=== PATIENT | male | born 1970 | race Caucasian/White ===

== ENCOUNTER 2017-11-25 07:22 | Observation (INO) | payer OTHER ==
[2017-11-25] VITALS (18 sets, daily range): BP systolic 94–116; BP diastolic 49–72
[~2017-11-25] VITALS: Ht 177.8 cm; Wt 108.0 kg
--- NOTE | ~2017-11-25 | H ---
[address] [address] HISTORY AND PHYSICAL Name: RIANNA GANN Room: [address] Oscar Hernandez#: [id number] Admission: 11/25/17 Attend Phys: Gaurav Pardo MD, Discharge: 11/26/17 Date of : 74 Report #: [id number] THIS REPORT FOR: //name// Please refer to the History and Physical performed in the physician's office. By: [id number] Records Staff JOE /ZAYNAB
[~2017-11-25 07:22] MED LIST: ASPIR 8181 MG PO; ATORVASTATIN CA40 MG PO; BRILINTA90 MG PO; CELEXA20 MG PO; EFFIENT10 MG; EFFIENT10 MG PO; IMDUR 30 MG TAB30 M1 PO; KLOR-CON M2020 MEQ PO; LASIX 20 MG TAB20 MG PO; LISINOPRIL10 MG PO; LOPRESSOR25 PO; NITRO-DUR1 EAC2 TRANSDERM; NITROGLYCERIN0.4 MG SUBLING; PLAVIX 75 MG TA75 M1 PO; RANEXA500 MG PO
[2017-11-25 08:03] LABS: HEMATOCRIT 42.1 % (42.0-52.0); HEMOGLOBIN 14.5 gm/dL (14.0-18.0); MCH 31.9 pg (26.0-34.0); MCHC 34.4 g/dL (28.0-37.0); MCV 92.5 fL (80.0-100.0); MPV 7.9 fl. (7.2-11.1); RBC 4.55 mil/uL (4.50-6.00); RDW-CV 14.1 % (10.5-14.5); WBC 7.5 thou/uL (4.0-11.0)
[2017-11-25 08:11] LABS: APTT 28.5 Seconds (25.0-31.3); INR 1.1; PROTIME 10.5 Seconds (9.20-11.50)
[2017-11-25 08:32] LABS: ANION GAP 8 mmol/L (7-16); BUN 16 mg/dL (7-18); CALCIUM 8.6 mg/dL (8.5-10.1); CHLORIDE 99 mmol/L (98-107); CO2 29 mmol/L (21-32); CREATININE 1.5 mg/dL (0.6-1.3); GLUCOSE 81 mg/dL (70-99); POTASSIUM 3.9 mmol/L (3.5-5.1); SODIUM 136 mmol/L (136-145)
[2017-11-25 08:35] LABS: ALBUMIN 4.2 g/dL (3.4-5.0); ALKALINE PHOSPHATASE 79 U/L (46-116); CHOLESTEROL 109 mg/dL (<200); HDL CHOLESTEROL 29 mg/dL (>40); LDL CHOLESTEROL 65 mg/dL (<100); SGOT 16 U/L (15-37); SGPT 18 U/L (30-65); TC:HDL 3.8 Ratio (Not establshd); TOTAL BILIRUBIN 0.7 mg/dL (<0.1-1.0); TOTAL PROTEIN 7.7 g/dL (6.4-8.2); TRIGLYCERIDE 75 mg/dL (<150); VLDL 15 mg/dL (<40)
[2017-11-25 08:36] LABS: SERUM ASSESSMENT Clear
[2017-11-26] VITALS: BP 117/58
[2017-11-26 04:00] VITALS: BP 123/55
[2017-11-26 05:27] LABS: HEMATOCRIT 37.5 % (42.0-52.0); HEMOGLOBIN 12.6 gm/dL (14.0-18.0); MCH 31.7 pg (26.0-34.0); MCHC 33.5 g/dL (28.0-37.0); MCV 94.7 fL (80.0-100.0); MPV 8.2 fl. (7.2-11.1); RBC 3.95 mil/uL (4.50-6.00); RDW-CV 14.6 % (10.5-14.5)
[2017-11-26 06:00] LABS: ANION GAP 7 mmol/L (7-16); BUN 13 mg/dL (7-18); CHLORIDE 107 mmol/L (98-107); CO2 25 mmol/L (21-32); CREATININE 1.2 mg/dL (0.6-1.3); GLUCOSE 80 mg/dL (70-99); SODIUM 139 mmol/L (136-145); TROPONIN-I LEVEL <0.06 ng/mL (<0.06)
[2017-11-26 09:30] VITALS: BP 122/64
[2017-11-26 09:45] VITALS: BP 122/64
[2017-11-26 11:19] VITALS: BP 122/64
[2017-11-26 12:40] VITALS: BP 122/64
--- NOTE | 2017-11-26 17:37 | EKG ---
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1970 Requested By: Gaurav Pardo Order Number: [id number] Marcus MD: Favian Jesus Measurements Intervals [place] Rate: 62 P: 69 CO: 156 QRS: 54 QRSD: 88 T: 41 QT: 413 QTc: 420 Interpretive Statements Sinus rhythm ST elevation suggests acute pericarditis Compared to ECG 10/18/2017 08:24:16 No significant changes Electronically Signed On 11-26-2017 17:37:16 CRM SPECIALIST by Favian Jesus [email or web address] <ELECTRONICALLY SIGNED> By: Favian Jesus MD, [facility] 11/26/17 1737 1 1 Favian Jesus MD, [facility] /EPI
--- NOTE | 2017-11-26 17:39 | EKG ---
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1970 Requested By: Gaurav Pardo Order Number: [id number] Reading MD: Favian Jesus Measurements Intervals [place] Rate: 62 P: 75 [place]: 172 QRS: 57 QRSD: 91 T: 37 QT: 432 QTc: 439 Interpretive Statements Sinus rhythm Abnormal R-wave progression, early transition ST elevation, consider ischemia versus pericarditis versus early repolarization Compared to ECG 10/18/2017 08:24:16 ST (T wave) deviation still present Electronically Signed On 11-26-2017 17:39:43 FIELD INTERVIEWER by Favian Jesus [email or web address] <ELECTRONICALLY SIGNED> By: Favian Jesus MD, FACC 11/26/17 1739 1235 1235 Favian Jesus MD, FAC /EPI
--- NOTE | 2017-11-26 17:43 | EKG ---
[place] [address] ELECTROCARDIOGRAM REPORT Name: RIANNA GANN Room: [address]#: [id number] Admission: 11/25/17 Attend Phys: Gaurav Pardo MD, Discharge: 11/26/17 Date of : 74 Report #: [id number] THIS REPORT FOR: //name// [facility] Test Date: 2017-11-26 Test Time: 03:13:05 Pat Name: RIANNA GANN Department: Room: [facility] Gender: M Clay Pigeon Setter: RSHEDBRANDEE : 1970 Requested By: Gaurav Pardo Order Number: [id number] Marcus MD: Favian Jesus Measurements Intervals [place] Rate: 69 P: 72 [place]: 148 QRS: 43 QRSD: 89 T: 29 QT: 410 QTc: 440 Interpretive Statements Sinus rhythm Low voltage, precordial leads Minimal ST elevation, inferior leads Baseline wander in lead(s) V6 Compared to ECG 10/18/2017 08:24:16 Low QRS voltage now present ST (T wave) deviation still present Electronically Signed On 11-26-2017 17:43:33 WATER SYSTEMS DESIGNER by Favian Jesus [email or web address] <ELECTRONICALLY SIGNED> By: Favian Jesus MD, FACC 11/26/17 1743 2 Favian Jesus MD, FAC /EPI
--- NOTE | 2017-11-27 16:31 | D ---
[facility] [address] [place] [address] DISCHARGE SUMMARY Name: RIANNA GANN Room: [address] Oscar Hernandez#: [id number] Admission: 11/25/17 Attend Phys: Gaurav Pardo MD, Discharge: 11/26/17 Date of : 74 Report #: [id number] THIS REPORT FOR: //name// CC: CHET Pardo DATE OF SERVICE: 11/26/2017 FINAL DISCHARGE DIAGNOSES: 1. Unstable angina. 2. Status post percutaneous coronary intervention with deployment of drug-eluting stents in the proximal left anterior descending and proximal first diagonal. 3. History of remote myocardial infarction. 4. Hypertension. 5. Hyperlipoproteinemia. PROCEDURES: 11/25/2017 - left heart catheterization, selective coronary arteriography, and percutaneous coronary intervention with deployment of drug-eluting stents at the site of ostial 80% LAD stenosis and ostial 75% first diagonal stenosis after fractional flow reserve was performed on the LAD. HOSPITAL COURSE: The patient is a very pleasant 47-year-old male with aggressive coronary artery disease status post remote myocardial infarction and multivessel stenting. He has underlying hypertension and hypercholesterolemia. Recently, he has noted an increase in frequency and severity of anginal episodes to the point where he is having daily and nightly episodes relieved by nitrates. Despite increasing his Ranexa to 1000 mg b.i.d. and using significant dose of transcutaneous nitrates, he still required frequent sublingual nitroglycerin tablets. In this context, I performed recatheterization on 11/26/2017 and that revealed significant coronary artery disease characterized by 80% ostial LAD narrowing and 75% ostial first diagonal stenosis. There was 30%-40% distal LAD narrowing. There was a widely patent proximal circumflex stent and widely patent distal right coronary artery stent with 30%-40% mid vessel narrowing. I performed FFR in the LAD with a minimum value 0.81. Noting the aforementioned data and the recent clinical instability, I elected to proceed with percutaneous coronary intervention, deploying 1 drug-eluting stent at the ostium of the first diagonal and 1 drug-eluting stent at the ostium of the LAD with a good angiographic result and 10% residual narrowing at both sites following stent deployment. The patient did well post-procedurally and there was good hemostasis at the left femoral site of catheterization. Laboratory on 11/26/2017 revealed a hemoglobin of 12.6, white blood cell count of 7000, platelets 155,000. Sodium 139, potassium 4.0, BUN 13, creatinine 1.2, LDL 65, total cholesterol 109, triglycerides 75 [place] [address] DISCHARGE SUMMARY Name: GANNRIANNA Room: [address] Oscar Hernandez#: [id number] Admission: 11/25/17 Attend Phys: Gaurav Pardo MD, Discharge: 11/26/17 Date of : 74 Report #: [id number] DISCHARGE MEDICATIONS: The patient was discharged to home on 11/26/2017 on the following medications: Aspirin 81 mg daily, atorvastatin 40 mg every other day, citalopram 20 mg daily, furosemide 20 mg every other day, lisinopril 20 mg b.i.d., metoprolol tartrate 50 mg b.i.d., potassium chloride 10 mEq daily, ticagrelor 90 mg b.i.d. Previously utilized transcutaneous nitrates and Ranexa have been discontinued. The patient is scheduled to return to see my nurse practitioner, Tasneem Ag on 12/17/2017 at 09:30 and myself on 01/07/2018 at 15:30. <ELECTRONICALLY SIGNED> By: Gaurav Pardo MD, FACC 11/27/17 1631 1052 1148Joguerita Pardo MD, FACC /nt
--- NOTE | 2017-11-29 11:34 | CARD ---
[address] [address] CARDIAC CATH REPORT Name: AZEEMRIANNA Mckinney Room: [address] Oscar Hernandez#: [id number] Admission: 11/25/17 Attend Phys: Gaurav Parod MD, Discharge: 11/26/17 Date of : 74 Report #: [id number] THIS REPORT FOR: //name// APPROVED REPORT Patient Details Patient Status: Out-Patient Room #: The patient is a 47 year-old male Event Personnel Gaurav Pardo Terminal Gauger Supervisor, Sonja Rodriguez Polytechnic Registrar, Penelope Jennings, Diaz Chase (R) Scrub Procedures Performed Art Access - L femoral artery* Left Heart Cath w/or w/o Coronaries [id number] [facility] [address] Place w/wo Plasty Addl BR DIAG [address] w/wo Plasty Single LAD [id number] Indication Unstable angina Risk Factors Family History, Hypercholesterolemia, Hypertension Previous Procedures/Diagnoses Previous PCI Admission/Lab Medications/Medications given during procedure Aspirin, Platelet Aff. Inhib., Angiomax bolus and infusion Procedure Narrative The patient was brought electively to the Cardiac Catheterization Laboratory and was prepped and draped in a sterile manner. The left femoral was infiltrated with 1% Lidocaine subcutaneous anesthesia. A Cypress 6 FR sheath was inserted into the LFA. Coronary angiography was performed using coronary diagnostic catheters. The right coronary system was accessed and visualized with a DIAG 6FR JR 4 catheter. The left coronary system was accessed and visualized with a DIAG 6FR JL 4 catheter. Left ventricular/Aortic Valve gradient assessed via catheter pullback. Pre-demployment femoral angiogram was performed . Closure device was deployed with a 6 Fr Angioseal STS 6Fr. The patient tolerated the procedure well and there were no complications associated with the procedure. There was no hematoma. Intraoperative [place] [address] CARDIAC CATH REPORT Name: RIANNA GANN Room: [address] Oscar M.Mindi#: [id number] Admission: 11/25/17 Attend Phys: Gaurav Pardo MD, Discharge: 11/26/17 Date of : 74 Report #: [id number] Sedation start time: 09:51 Case end Time: 11:31 Fentanyl 75 mcg Versed 3 mg Fluoro Time: 24.8 minutes Dose: DAP 224259 cGycm2 3475.31 mGy Contrast Type and Amount: Visipaque 775 ml Diagnostic Cath Left Main 0% narrowing LAD 80% focal ostial and 40% mid LAD stenosis; there was aneurysmal dilatation of the proximal LAD Diagonal 1 75% ostial narrowing with aneurysmal dilatation of the proximal first diagonal Circumflex 20% mid vessel narrowing with widely patent proximal stent Right Coronary 30% mid and distal narrowing of this dominant vessel with widely patent distal right coronary stent and 50% narrowing of the posterior descending branch of the dominant right coronary artery Left Ventriculography Left Ventriculography was not performed. IVUS Anticoagulation was achieved with Angiomax. Fractional Flow Larose was performed on the LAD vessel. IVUS Findings FFR was performed on the LAD with a minimum value of 0.81 after pharmacologic provocation with adenosine Hemodynamics The aortic pressure is 93/47 mmHg with a mean of mmHg. The left ventricular pressure is 89/1 mmHg with a mean of mmHg. The left ventricular end diastolic pressure is 7 mmHg. There was no gradient across the aortic valve upon pullback. PCI Technique Lesion Anticoagulation was achieved with Angiomax. Percutaneous coronary intervention was performed on the first diagnonal branch segment. The lesion stenosis prior to intervention was 75% with ANDRÉS 3 flow. A 6FR XB 3.5 100CM Guide Catheter was used to engage the LCA ostium. A IG: ProwaterFlex 180CM Interventional Guidewire was used [place] [address] CARDIAC CATH REPORT Name: RIANNA GANN Room: [address]#: [id number] Admission: 11/25/17 Attend Phys: Gaurav Pardo MD, Discharge: 11/26/17 Date of : 74 Report #: [id number] BALLOON DILATION A Balloon catheter Trek RX 2.75 X 8 was inserted and inflated up to 12.00atm for 10seconds. STENT DEPLOYMENT A drug-eluting stent Xience Alpine RX 3.0X8 was inserted and inflated up to 10.00atm for 12seconds. Additional Inflation: 14.00atm for 10seconds. Additional Inflation: 15.00atm for 9seconds. POST STENT DEPLOYMENT BALLOON DILATION A Balloon catheter NC Trek RX 3.25X8 was inserted and inflated up to 16.00atm for 11seconds. Final angiography reveals 10 % stenosis with ANDRÉS 3 flow. PCI Technique Lesion The lesion stenosis prior to intervention was LAD% with ANDRÉS flow. BALLOON DILATION A Balloon catheter FFR was performed on the LAD with a minimum value of 0.81 after pharmacologic provocation with adenosine was inserted and inflated up to anette for seconds. PCI Technique Lesion 2 Percutaneous Coronary Intervention was performed on the proximal left anterior descending artery segment. A 6FR XB 3.5 100CM Guide Catheter was used to engage the left ostium. A Pressure Wire 175cm Interventional Guidewire was used to cross the lesion. Stent Deployment A drug-eluting stent 3.25 X 8 XIENCE ALPINE was inserted and inflated up to 12.00atm for 12seconds. Additional Inflation: 16.00atm for 8seconds. Additional Inflation: 18.00atm for 5seconds. Post Stent Deployment Balloon Dilation A Balloon catheter NC Trek RX 3.5 X 8 was inserted and inflated up to 16.00atm for 8seconds. Additional Inflation: 18.00atm for 9seconds. Additional Inflation: 20.00atm for 12seconds. Final angiography reveals 10 % stenosis with ANDRÉS 3 flow. Conclusion #1 significant coronary artery disease characterized by the following: [place] [address] CARDIAC CATH REPORT Name: RIANNA GANN Room: [address] Oscar Hernandez#: [id number] Admission: 11/25/17 Attend Phys: Gaurav Pardo MD, Discharge: 11/26/17 Date of : 74 Report #: [id number] A 90% ostial with 40% mid LAD narrowing with aneurysmal dilatation the proximal LAD, B 75% ostial first diagonal narrowing with aneurysmal dilatation of the proximal portion of the diagonal, C nondominant circumflex with 20% proximal narrowing, D dominant right coronary artery with 30% mid and distal narrowing with widely patent distal right coronary stents with 50% posterior descending branch narrowings #2 normal left-sided hemodynamics study, #3 successful percutaneous coronary intervention with deployment of a drug-eluting stent at site of 75% ostial first diagonal stenosis with 10% residual narrowing following stent deployment, #4 successful percutaneous coronary intervention with deployment of a drug-eluting stent at the site of 80% ostial LAD narrowing with 10% residual narrowing following stent deployment and ANDRÉS-3 flow the distal vessel, #5 fractional flow reserve performed on the LAD with a minimum value of .81 after pharmacologic provocation with adenosine Recommendations Cardiac Risk Reduction Program Aggressive Medical Therapy Medications Administered Ticagrelor Diagnostic Cath Approved by: Gaurav Pardo MD Date/Time: 11/29/17 1132 hrs. <ELECTRONICALLY SIGNED> By: Gaurav Pardo MD, FAC 11/29/17 1134 1134 1134Gaurav Pardo MD, FAC /INF
[2018-01-23] MEDS ORDERED: DILTIAZEM 24HR240 M2 PO (08:25)
[2018-01-23] MEDS ORDERED: RANEXA500 MG PO (08:26)
[2018-01-23] MEDS ORDERED: KLOR-CON 1010 MEQ PO (09:04)
[2018-01-23] MEDS ORDERED: CARDIZEM CD240 MG PO (15:04)
== END 2017-11-26 12:27 | disposition home or self-care (01) ==
LOC: M.CL 07:22 → M.2W 11:57 → M.TBA-CV 11:57 → M.2W 11:57
PROVIDERS: ADMIT Internal Medicine
DX: I25.110 Atherosclerotic heart disease of native coronary artery with unstable angina pectoris (principal); I25.2 Old myocardial infarction; I10 Essential (primary) hypertension; Z95.5 Presence of coronary angioplasty implant and graft; Z87.891 Personal history of nicotine dependence; E78.5 Hyperlipidemia, unspecified

== ENCOUNTER 2017-12-13 07:34 | Observation (INO) | payer OTHER ==
[~2017-12-13] VITALS: Ht 177.8 cm; Wt 96.6 kg
[2017-12-13] MEDS ORDERED: RANEXA500 MG PO (07:42)
[2017-12-13 07:56] LABS: ABSOLUTE EOSINOPHILS 0.4 thou/uL (0.0-0.7); ABSOLUTE LYMPHOCYTES 1.6 thou/uL (0.8-5.3); ABSOLUTE MONOCYTES 0.7 thou/uL (0.0-1.2); ABSOLUTE NEUTROPHILS 4.9 thou/uL (1.6-8.1); BASOPHILS 0.6 %; EOSINOPHILS 5.1 %; HEMATOCRIT 42.9 % (42.0-52.0); LYMPHOCYTES 20.4 %; MCH 32.9 pg (26.0-34.0); MCV 93.9 fL (80.0-100.0); MONOCYTES 9.5 %; MPV 8.2 fl. (7.2-11.1); NUCLEATED RBCS 0 /100WBC; PLATELET COUNT* 182 thou/uL (150-400); POLYS 64.4 %; RBC 4.56 mil/uL (4.50-6.00); RDW-CV 14.1 % (10.5-14.5); WBC 7.6 thou/uL (4.0-11.0)
[2017-12-13 07:57] LABS: ANION GAP 8 mmol/L (7-16); BUN 11 mg/dL (7-18); CALCIUM 8.7 mg/dL (8.5-10.1); CHLORIDE 100 mmol/L (98-107); CO2 29 mmol/L (21-32); CREATININE 1.4 mg/dL (0.6-1.3); GLUCOSE 150 mg/dL (70-99); POTASSIUM 3.8 mmol/L (3.5-5.1); SODIUM 137 mmol/L (136-145)
[2017-12-13 08:17] LABS: ALBUMIN 4.1 g/dL (3.4-5.0); ALKALINE PHOSPHATASE 76 U/L (46-116); CK-MB MASS < 0.5 ng/mL (<0.5-3.6); LIPASE 81 U/L (73-393); MAGNESIUM 2.2 mg/dL (1.8-2.4); NT-PRO BRAIN NAT PEPTIDE 91 pg/mL (<300); SGOT 20 U/L (15-37); SGPT 24 U/L (30-65); TOTAL BILIRUBIN 1.2 mg/dL (<0.1-1.0); TOTAL PROTEIN 7.4 g/dL (6.4-8.2); TROPONIN-I LEVEL <0.06 ng/mL (<0.06)
[2017-12-13 08:34] LABS: APTT 29.2 Seconds (25.0-31.3); INR 1.1; PROTIME 10.7 Seconds (9.20-11.50)
[2017-12-13 11:34] VITALS: BP 103/60
--- NOTE | 2017-12-13 13:18 | EKG ---
[place] [address] ELECTROCARDIOGRAM REPORT Name: RIANNA GANN Room: [address] ADM IN .R.#: [id number] Admission: 12/13/17 Attend Phys: Manuel Peraza, Discharge: Date of : 74 Report #: [id number] THIS REPORT FOR: //name// [facility] ED Test Date: 2017-12-13 Test Time: 07:37:37 Pat Name: RIANNA GANN Department: Room: [facility] Gender: House Sitter: Jun RAMIREZ : 1970 Requested By: Damaso Pina Order Number: [id number] MD: Juan Hoyos Measurements Intervals [place] Rate: 71 P: 72 DE: 155 QRS: 59 QRSD: 90 T: 42 QT: 390 QTc: 424 Interpretive Statements Sinus rhythm Left atrial enlargement ST elev, probable normal early repol pattern Compared to ECG 11/26/2017 03:13:05 Atrial abnormality now present Electronically Signed On 12-13-2017 13:18:39 CHILD DAYCARE WORKER by Juan Hoyos [email or web address] <ELECTRONICALLY SIGNED> By: Juan Hoyos MD, [facility] 12/13/17 1318 0737 0737 Juan Hoyos MD, [facility] /EPI
--- NOTE | 2017-12-13 15:13 | EKG ---
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: 228 : 1970 Requested By: Damaso Pina Order Number: [id number] Marcus MD: Juan Hoyos Measurements Intervals [place] Rate: 58 P: 74 RI: 162 QRS: 60 QRSD: 94 T: 43 QT: 412 QTc: 405 Interpretive Statements Sinus rhythm Abnormal R-wave progression, early transition ST elevation suggests acute pericarditis Compared to ECG 12/13/2017 07:37:37 ST (T wave) deviation still present Electronically Signed On 12-13-2017 15:13:19 TITLE I COORDINATOR by Juan Hoyos [email or web address] <ELECTRONICALLY SIGNED> By: Juan Hoyos MD, [facility] 12/13/17 1513 1336 1336 Juan Hoyos MD, [facility] /EPI
[2017-12-13 16:00] VITALS: BP 102/56
[2017-12-13 20:00] VITALS: BP 106/62
[2017-12-14] VITALS: BP 96/61
[2017-12-14 04:00] VITALS: BP 116/68
[2017-12-14 05:56] LABS: MCH 32.2 pg (26.0-34.0); MCV 94.7 fL (80.0-100.0); MPV 8.3 fl. (7.2-11.1); RBC 4.33 mil/uL (4.50-6.00); RDW-CV 14.2 % (10.5-14.5); WBC 5.8 thou/uL (4.0-11.0)
[2017-12-14 06:22] LABS: ALBUMIN 3.6 g/dL (3.4-5.0); ALKALINE PHOSPHATASE 63 U/L (46-116); ANION GAP 5 mmol/L (7-16); BUN 11 mg/dL (7-18); CALCIUM 8.7 mg/dL (8.5-10.1); CHLORIDE 103 mmol/L (98-107); CO2 31 mmol/L (21-32); CREATININE 1.3 mg/dL (0.6-1.3); GLUCOSE 84 mg/dL (70-99); MAGNESIUM 2.2 mg/dL (1.8-2.4); POTASSIUM 4.5 mmol/L (3.5-5.1); SGOT 15 U/L (15-37); SGPT 18 U/L (30-65); SODIUM 139 mmol/L (136-145); TOTAL PROTEIN 6.2 g/dL (6.4-8.2); TROPONIN-I LEVEL <0.06 ng/mL (<0.06)
[2017-12-14 08:00] VITALS: BP 110/71
[2017-12-14 11:33] VITALS: BP 125/61
[2017-12-14] MEDS ORDERED: COLACE 100 MG100 MG PO (11:42)
[2017-12-14] MEDS ORDERED: NITROGLYCERIN1 EAC1 TRANSDERM (11:43)
--- NOTE | 2017-12-15 10:21 | CON ---
[address] [address] CONSULTATION Name: RIANNA GANN Room: [address] IN M.R.#: [id number] Admission: 12/13/17 Attend Phys: Manuel Peraza, Discharge: 12/14/17 Date of : 74 Report #: [id number] THIS REPORT FOR: //name// CC: CHET [place]ons in [place], [place] Manuel Peraza DATE OF SERVICE: 12/13/2017 HISTORY OF PRESENT ILLNESS: The patient is a 47-year-old white male, who I was asked to see in the hospital after he complained of chest pain. The patient has extensive past medical history. He apparently presented in 2013 with acute myocardial infarction. He was admitted to [facility] and Dr. Pardo placed 2 coronary stents. He has had a total of up to 9 stents since that time. He was actually just admitted here to [place] [address] Pardo. He underwent elective cardiac catheterization by Dr. Pardo. Results: The LAD had 80% ostial stenosis. Diagonal artery had 75% stenosis. Circumflex had a stent with no restenosis. The right coronary had a stent with no restenosis. Fractional flow reserve was performed on the LAD. Value was 0.81 after adenosine. He was then given Angiomax and Dr. Pardo then placed a drug-eluting stent. He then placed a second stent in the LAD as well. The patient was discharged the following day. The patient initially states he did well after his discharge. However, the past week, he has been having intermittent chest pain. It is not related to exertion or meals. They occasionally radiates into his left arm. It can make him diaphoretic. He finally came to the hospital last night and was admitted. PAST MEDICAL HISTORY: Otherwise significant for knee surgery, hypertension, hyperlipidemia. MEDICATIONS: Consist of aspirin, Lipitor, Celexa, Lasix, lisinopril, metoprolol, Ranexa, Brilinta. ALLERGIES: HE HAS PREVIOUS INTOLERANCE TO EFFIENT AND ISOSORBIDE. FAMILY HISTORY: Positive for heart disease. SOCIAL HISTORY: He is . He and his live in [place], [place]. 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 Quit smoking in the past. No alcohol abuse. REVIEW OF SYSTEMS: He apparently had a TIA years ago. No history of asthma, peptic ulcer disease, liver disease, kidney disease, cancer, or psychiatric illness. PHYSICAL EXAMINATION: GENERAL: Revealed a middle-aged male, lying [place] [address] CONSULTATION Name: RIANNA GANN Room: [address]#: [id number] Admission: 12/13/17 Attend Phys: Manuel Peraza, Discharge: 12/14/17 Date of : 74 Report #: [id number] distress. VITAL SIGNS: He had a blood pressure of 110/70, pulse 70. HEENT: He was anicteric. Conjunctivae pink. Mucous membranes moist. NECK: Veins nondistended. No carotid bruits. CHEST: Clear to auscultation. CARDIOVASCULAR: Regular rate and rhythm. ABDOMEN: Soft, nontender. EXTREMITIES: Had no edema. Posterior tibial pulse 2+ bilaterally. SKIN: Warm and dry. NEUROLOGIC: Nonfocal. DIAGNOSTIC DATA: His ECG when he arrived this morning showed a sinus rhythm. There was no ST or T-wave change. His workup in the Emergency Room this morning, he had a portable chest x-ray that showed minimal atelectasis. LABORATORY DATA: He had lab work this morning. Sodium 137, creatinine 1.4. Liver function studies were normal. Troponins all 0.06. His white blood cell count 7.6, hemoglobin 15. IMPRESSION AND RECOMMENDATIONS: 1. Chest pain, suspicious for angina. The patient just had stents placed 2 weeks ago. At this time, I would recommend medical therapy. 2. Hypertension. The patient is on the beta daksha and JULIA inhibitor. 3. Hyperlipidemia. The patient is on a statin drug. 4. Previous tobacco abuse. <ELECTRONICALLY SIGNED> By: Juan Hoyos MD, FACC 12/15/17 1021 1540 0010Dahollie Hoyos MD, FACC /nt
[2018-01-23] MEDS ORDERED: DILTIAZEM 24HR240 M2 PO (08:25)
[2018-01-23] MEDS ORDERED: RANEXA500 MG PO (08:26)
[2018-01-23] MEDS ORDERED: KLOR-CON 1010 MEQ PO (09:04)
[2018-01-23] MEDS ORDERED: CARDIZEM CD240 MG PO (15:04)
== END 2017-12-14 11:55 | disposition home or self-care (01) ==
LOC: M.ERS 07:34 → M.TBA-ER 08:19 → M.2W 08:19
PROVIDERS: Family Medicine; ADMIT Family Medicine
DX: I25.110 Atherosclerotic heart disease of native coronary artery with unstable angina pectoris (principal); M25.512 Pain in left shoulder; E78.00 Pure hypercholesterolemia, unspecified; I10 Essential (primary) hypertension; E78.5 Hyperlipidemia, unspecified; I25.2 Old myocardial infarction; Z95.5 Presence of coronary angioplasty implant and graft; F17.210 Nicotine dependence, cigarettes, uncomplicated

== ENCOUNTER → 2018-01-23 | Outpatient (CLI) | payer OTHER ==
[2018-01-23] VITALS (8 sets, daily range): BP systolic 104–121; BP diastolic 54–71
[~2018-01-23] VITALS: Ht 177.8 cm; Wt 103.0 kg
[~2018-01-23] MED LIST changes: +CARDIZEM CD240 MG PO; +COLACE 100 MG100 MG PO; +DILTIAZEM 24HR240 M2 PO; +KLOR-CON 1010 MEQ PO; +NITROGLYCERIN1 EAC1 TRANSDERM; +OMEPRAZOLE40 MG PO
[2018-01-23 08:00] LABS: HEMATOCRIT 43.2 % (42.0-52.0); HEMOGLOBIN 14.9 gm/dL (14.0-18.0); MCH 32.8 pg (26.0-34.0); MCHC 34.5 g/dL (28.0-37.0); MCV 95.1 fL (80.0-100.0); MPV 8.3 fl. (7.2-11.1); RBC 4.54 mil/uL (4.50-6.00); RDW-CV 14.1 % (10.5-14.5); WBC 9.9 thou/uL (4.0-11.0)
[2018-01-23 08:09] LABS: APTT 28.5 Seconds (25.0-31.3); INR 1.1; PROTIME 10.4 Seconds (9.20-11.50)
[2018-01-23 08:12] LABS: ANION GAP 8 mmol/L (7-16); BUN 11 mg/dL (7-18); CALCIUM 8.3 mg/dL (8.5-10.1); CHLORIDE 101 mmol/L (98-107); CO2 29 mmol/L (21-32); CREATININE 1.3 mg/dL (0.6-1.3); GLUCOSE 88 mg/dL (70-99); POTASSIUM 3.7 mmol/L (3.5-5.1); SODIUM 138 mmol/L (136-145)
[2018-01-23 08:16] LABS: ALKALINE PHOSPHATASE 70 U/L (46-116); CHOLESTEROL 123 mg/dL (<200); HDL CHOLESTEROL 32 mg/dL (>40); LDL CHOLESTEROL 71 mg/dL (<100); SGOT 20 U/L (15-37); SGPT 27 U/L (30-65); TC:HDL 3.8 Ratio (Not establshd); TOTAL BILIRUBIN 0.9 mg/dL (<0.1-1.0); TOTAL PROTEIN 7.5 g/dL (6.4-8.2); TRIGLYCERIDE 101 mg/dL (<150); VLDL 20 mg/dL (<40)
[2018-01-23 08:21] LABS: SERUM ASSESSMENT Clear
--- NOTE | 2018-01-23 15:23 | EKG ---
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: [facility] : 1970 Requested By: Gaurav Pardo Order Number: [id number] Marcus MD: Gaurav Pardo Measurements Intervals [place] Rate: 59 P: 66 CO: 161 QRS: 46 QRSD: 89 T: 27 QT: 417 QTc: 414 Interpretive Statements Sinus rhythm ST elevation suggests acute pericarditis or early repolarization Compared to ECG 12/13/2017 13:36:14 No significant changes Electronically Signed On 01-23-2018 15:22:53 CDT by Gaurav Pardo [email or web address] <ELECTRONICALLY SIGNED> By: Gaurav Pardo MD, [facility] 01/23/18 1522 Gaurav Pardo MD, FAC /EPI
--- NOTE | 2018-01-24 10:44 | CARD ---
[address] [address] CARDIAC CATH REPORT Name: RIANNA GANN Room: [address] M.R.#: [id number] Admission: 01/23/18 Attend Phys: Gaurav Pardo MD, Discharge: Date of : 74 Report #: [id number] THIS REPORT FOR: //name// APPROVED REPORT Study performed: 01/23/2018 07:46:15 Patient Details Patient Status: Out-Patient Room #: The patient is a 47 year-old male Event Personnel Gaurav Pardo Client Application Support Specialist, Theresa Garcia RN Pest Control Service Technician, Penelope Jennings Monitor, Kristin Velasuqez RTR Scrub Procedures Performed Art Access - L femoral artery* , Left Heart Catheterization, Selective Right and Left Coronary Angiography Indication Chest pain Risk Factors Family History, Hypercholesterolemia Previous Procedures/Diagnoses Previous PCI Procedure Narrative The patient was brought electively to the Cardiac Catheterization Laboratory and was prepped and draped in a sterile manner. The left femoral was infiltrated with 1% Lidocaine subcutaneous anesthesia. A 6fr Ultimum Sheath sheath was inserted into the left femoral artery. Coronary angiography was performed using coronary diagnostic catheters. The right coronary system was accessed and visualized with a Diagnostic JR 4 6fr catheter. The left coronary system was accessed and visualized with a Diagnostic JL 4 6fr catheter. The left ventricle was accessed and visualized with a Diagnostic 6fr pigtail catheter. Left ventricular/Aortic Valve gradient assessed via catheter pullback. Left ventriculogram was performed in QUICK projection. Pre-demployment femoral angiogram was performed . Closure device was deployed with a 6 Fr MynxGrip 6/7F. The patient tolerated the procedure well and there were no complications associated with the procedure. [place] [address] CARDIAC CATH REPORT Name: RIANNA GANN Room: [address]#: [id number] Admission: 01/23/18 Attend Phys: Gaurav Pardo MD, Discharge: Date of : 74 Report #: [id number] Intraoperative Conscious Sedation Sedation start time: 09:37 Case end Time: 10:05 Fentanyl 50 mcg Versed 2 mg Fluoro Time: 2.8 minutes Dose: DAP 11807 cGycm2 15543 mGy Contrast Type and Amount: Visipaque 90 ml Coronary Angiography The patient's coronary anatomy is right dominant. Diagnostic Cath Left Main 0% narrowing LAD Widely patent proximal LAD stent with aneurysmal dilatation of the LAD beyond the stented portion; 0% narrowing Diagonal 1 Widely patent proximal first diagonal stent with aneurysmal dilatation of the diagonal beyond the stented portion; 0% narrowing Circumflex Widely patent proximal circumflex stent with 0% narrowing of the distal circumflex Right Coronary Large dominant vessel with 40% proximal narrowing, aneurysmal dilatation of the mid and distal vessel with widely patent distal right coronary stent and 40% narrowing of the posterior descending branch Left Ventriculography The left ventricle is normal in size with normal contractility. The left ventricular ejection fraction is estimated to be 60%. Left ventricular wall motion abnormalities are not present. There is no mitral insufficiency. Hemodynamics The aortic pressure is 118/63 mmHg with a mean of mmHg. The left ventricular pressure is 113/3 mmHg with a mean of mmHg. The left ventricular end diastolic pressure is 18 mmHg. There was no gradient across the aortic valve upon pullback. Conclusion #1 coronary artery disease characterized by the following: A widely patent proximal LAD stent with aneurysmal dilatation beyond the stented region with a widely patent proximal first diagonal stent and aneurysmal dilatation beyond the stented portion, B nondominant circumflex with a widely patent proximal stent and 0% [place] [address] CARDIAC CATH REPORT Name: RIANNA GANN [address]: [address] [id number] Admission: 01/23/18 Attend Phys: Gaurav Pardo MD, Discharge: Date of : 74 Report #: [id number] distal narrowing, C dominant right coronary artery with 40% proximal narrowing, aneurysmal dilatation of the mid and distal right coronary artery with a widely patent distal right coronary stent and 40% posterior descending branch narrowing #2 modest elevation of left ventricular end-diastolic pressure at rest #3 normal left ventricular systolic function, estimated ejection fraction being 60% Recommendations Cardiac Risk Reduction Program Aggressive Medical Therapy Diagnostic Cath Approved by: Gaurav Pardo MD Date/Time: 01/24/18 at 1043 hrs. <ELECTRONICALLY SIGNED> By: Gaurav Pardo MD, [facility] 01/24/18 1044 1044 1044Gaurav Pardo MD, FAC /INF
--- NOTE | 2018-01-24 12:14 | NUR ---
Attempted to reach patient by phone in follow up post heart cath. No answer, left message, given return phone call number for questions or concerns.
== END | disposition home or self-care (01) ==
LOC: M.CL 07:19 → M.TBA-CV 07:19 → M.CL 09:00 → M.TBA-CV 10:17 → M.CL 10:17
PROVIDERS: Internal Medicine
DX: I25.10 Atherosclerotic heart disease of native coronary artery without angina pectoris (principal); I10 Essential (primary) hypertension; I25.2 Old myocardial infarction; E78.00 Pure hypercholesterolemia, unspecified; F17.210 Nicotine dependence, cigarettes, uncomplicated; Z98.890 Other specified postprocedural states; Z95.5 Presence of coronary angioplasty implant and graft; Z88.8 Allergy status to other drugs, medicaments and biological substances; Z79.82 Long term (current) use of aspirin; Z79.899 Other long term (current) drug therapy

== ENCOUNTER → 2018-03-26 | Outpatient (CLI) | payer OTHER ==
[2018-03-28 10:13] LABS: ANA INTERPRETATION Positive (Negative); ANTI-SSA <0.2 AI (0.0-0.9)
== END ==
LOC: M.MRI 03-19 11:28 → M.LAB 16:30
PROVIDERS: Psychiatry & Neurology Neuromuscular Medicine
DX: G45.3 Amaurosis fugax (principal); G45.9 Transient cerebral ischemic attack, unspecified; H53.9 Unspecified visual disturbance; I25.2 Old myocardial infarction; F41.9 Anxiety disorder, unspecified

== ENCOUNTER → 2018-03-27 | Outpatient (CLI) | payer OTHER | LOC: M.MRI 17:01 | DX: G45.3 Amaurosis fugax (principal); I25.2 Old myocardial infarction; F41.9 Anxiety disorder, unspecified; Z88.8 Allergy status to other drugs, medicaments and biological substances ==

== ENCOUNTER → 2018-05-20 | Outpatient (CLI) | payer OTHER ==
--- NOTE | ~2018-05-20 | HEMONC ---
[address] [address] HEMATOLOGY ONCOLOGY NOTE Name: AZEEMRIANNA Faye Room: [facility].#: [id number] Admission: 05/20/18 Attend Phys: Gio Mcallister MD Discharge: Date of : 74 Report #: [id number] THIS REPORT FOR: //name// CC: Mazin Mcallister Michael DATE OF SERVICE: 05/20/2018 INCOMPLETE DICTATION REFERRING PHYSICIAN: Dr. Rodriguez REASON FOR CONSULTATION: Elevated homocysteine level. SUBJECTIVE: A 47-year-old male who has extensive cardiac history including myocardial infarction in 2013. He had a total of 12 cardiac catheterizations with multiple stents put in. He also had symptoms of TIA with visual loss, most likely with amaurosis fugax. The patient is currently on aspirin and Brilinta. He had a recent cardiac catheterization and workup revealed that he has elevation of his DICTATION ENDS HERE. By: 1106 1625Gio Mcallister MD /nt
[2018-05-20 12:37] LABS: ABSOLUTE EOSINOPHILS 0.3 thou/uL (0.0-0.7); ABSOLUTE LYMPHOCYTES 2.2 thou/uL (0.8-5.3); ABSOLUTE MONOCYTES 0.5 thou/uL (0.0-1.2); BASOPHILS 0.6 %; EOSINOPHILS 4.3 %; HEMOGLOBIN 14.1 gm/dL (14.0-18.0); LYMPHOCYTES 31.8 %; MCH 32.5 pg (26.0-34.0); MCHC 34.5 g/dL (28.0-37.0); MCV 94.2 fL (80.0-100.0); MPV 7.9 fl. (7.2-11.1); NUCLEATED RBCS 0 /100WBC; PLATELET COUNT* 180 thou/uL (150-400); POLYS 56.3 %; RBC 4.35 mil/uL (4.50-6.00); RDW-CV 14.3 % (10.5-14.5); WBC 7.1 thou/uL (4.0-11.0)
[2018-05-20 12:49] LABS: CALCIUM 8.9 mg/dL (8.5-10.1); CREATININE 1.3 mg/dL (0.6-1.3); POTASSIUM 3.9 mmol/L (3.5-5.1); TOTAL BILIRUBIN 0.7 mg/dL (<0.1-1.0); TOTAL PROTEIN 7.3 g/dL (6.4-8.2)
--- NOTE | 2018-05-27 10:20 | CON ---
[address] [address] CONSULTATION Name: AZEEMRIANNA Faye Room: [facility]#: [id number] Admission: 05/20/18 Attend Phys: Gio Mcallister MD Discharge: Date of : 74 Report #: [id number] THIS REPORT FOR: //name// CC: Mazin Mcallister DATE OF SERVICE: 05/20/2018 REFERRING PHYSICIAN: Dr. Rodriguez. REASON FOR CONSULTATION: Evaluation for thrombophilia. SUBJECTIVE: A 47-year-old male who has extensive cardiac history including myocardial infarction in 2013. He had 12 cardiac catheterizations with multiple stents put in. He also had lost vision of his right eye, which was more consistent with amaurosis fugax. The patient is currently on aspirin and Brilinta. Lab evaluation including a homocysteine level on 03/26/2018, which came back elevated at 17.5. He also had anticardiolipin IgG and IgM, which came back within normal range. The patient denies any previous thrombophilia. He denies any DVT or PE. The patient reported he has been having nausea and vomiting and epigastric pain. He has also diarrhea and change in his bowel habits. REVIEW OF SYSTEMS: All systems reviewed, was negative except the above. PAST MEDICAL HISTORY: Significant for extensive coronary artery disease with multiple stents put in, TIA, hypertension, angina, dyslipidemia, anxiety/depression. PAST SURGICAL HISTORY: Multiple stents placement, right knee arthroscopy. ALLERGIES: No known allergies. FAMILY HISTORY: Father with gastric cancer, mother with coronary artery disease. SOCIAL HISTORY: He is an ex-smoker, quit in 2013. He smoked 1 pack per day between the age of 18 and 44. He drinks alcohol occasionally. MEDICATIONS: Lisinopril 20 mg p.o. twice a day, metoprolol 50 mg p.o. twice a day, Brilinta 90 mg twice a day, diltiazem 240 mg once a day, citalopram 20 mg p.o. daily, aspirin 81 mg p.o. daily, atorvastatin 40 mg p.o. daily, Lasix 20 mg p.o. daily, potassium 10 mEq p.o. daily, Ranexa 500 mg p.o. twice a day. PHYSICAL EXAMINATION: [place] [address] CONSULTATION Name: RIANNA GANN Faye Room: [facility]#: [id number] Admission: 05/20/18 Attend Phys: Gio Mcallister MD Discharge: Date of : 74 Report #: [id number] VITAL SIGNS: Blood pressure is 136/74, pulse 61, respirations 16, temperature is 98.3, pulse ox 98. GENERAL: On physical examination, the patient was sitting in chair, was not in acute distress. LUNGS: Clear to auscultation bilaterally. CARDIOVASCULAR: Regular rate and rhythm. S1, S2 within normal limits. ABDOMEN: Soft, nontender, nondistended, bowel sounds positive. The patient had a very mild bruise in the left groin area. EXTREMITIES: No edema, no cyanosis or clubbing. LABORATORY DATA: On 01/23/2018, WBC 9.9, hemoglobin is 14.9, platelets 186. Creatinine is 1.3, calcium is 8.3, ALT is 27. Homocysteine is 17.5. Anticardiolipin was negative. ASSESSMENT AND PLAN: A 47-year-old male with extensive cardiac history, presented for evaluation of a thrombophilia. I did recommend aggressive lifestyle modifications including diet and exercise. In terms of homocystinuria, I did recommend the patient to have multivitamin including B6 and B12; however, no proof that lowering his homocysteine will change the risk of his future cardiac events. However, I would like to complete workup for thrombophilia including lupus antibody anticoagulant, beta 2 glycoprotein, factor Leiden, protein S, protein C and antithrombin III. Symptoms of nausea, vomiting, epigastric pain with bowel movement changes. We will refer to GI with a family history of gastric cancer, we will refer to GI for EGD and colonoscopy. Follow up in 3 weeks to discuss his blood workup. <ELECTRONICALLY SIGNED> By: Gio Mcallister MD 05/27/18 1020 1112 [id number] Mcallister MD /nt
== END ==
LOC: M.RTH 03:21
PROVIDERS: Internal Medicine
DX: Z13.0 Encounter for screening for diseases of the blood and blood-forming organs and certain disorders involving the immune mechanism (principal); E72.11 Homocystinuria; D68.59 Other primary thrombophilia; I10 Essential (primary) hypertension; I25.2 Old myocardial infarction; E78.2 Mixed hyperlipidemia; I25.10 Atherosclerotic heart disease of native coronary artery without angina pectoris; M48.02 Spinal stenosis, cervical region

== ENCOUNTER → 2018-05-28 | Outpatient (CLI) | payer OTHER | LOC: M.LAB 17:06 | PROVIDERS: Internal Medicine | DX: D68.59 Other primary thrombophilia (principal); I25.2 Old myocardial infarction ==

== ENCOUNTER → 2018-06-10 | Outpatient (CLI) | payer OTHER ==
--- NOTE | 2018-06-16 22:13 | HEMONC ---
[place] [address] HEMATOLOGY ONCOLOGY NOTE Name: AZEEMRIANNA M Room: [facility].#: [id number] Admission: 06/10/18 Attend Phys: Gio Mcallister MD Discharge: Date of : 74 Report #: [id number] THIS REPORT FOR: //name// CC: Mazin Mcallister DATE OF SERVICE: 06/10/2018 REASON FOR CONSULTATION: Evaluation for thrombophilia. REFERRING PHYSICIAN: Dr. Rodriguez. HISTORY OF PRESENT ILLNESS: A 47-year-old male who has previously had extensive cardiac history. The patient has been on aspirin and Brilinta. The patient had a thrombophilia workup, which all came back negative including lupus anticoagulant, beta 2 glycoprotein. In addition to that, factor Leiden, antithrombin M, protein C, protein S. I discussed with the patient at this point that he needs to continue lifestyle modification and continue his aspirin and Brilinta. No evidence of inherited or acquired thrombophilia at this point. The patient continues to have nausea and vomiting, burning sensation and abdominal tenderness. He is scheduled to see the GI for EGD and colonoscopy. REVIEW OF SYSTEMS: All systems were reviewed. It was negative except the above. PAST MEDICAL, SOCIAL, FAMILY HISTORY: Unchanged from previous visits. PHYSICAL EXAMINATION: VITAL SIGNS: Today, blood pressure is 132/80, pulse is 66, respirations 20, temperature is 98.2, saturations 98% on room air. GENERAL: The patient was sitting in chair, was not in acute distress. LUNGS: Clear to auscultation bilaterally. HEART: Regular rate and rhythm. S1, S2 within normal limits. ABDOMEN: The patient had significant tenderness in the left lower quadrant. ASSESSMENT AND PLAN: 1. A 47-year-old male who has extensive cardiac history. His thrombophilia workup came back negative, no evidence of lupus anticoagulant or protein C or protein S deficiency. I recommended to start multivitamin with B complex; however, no proof that lowering his homocystine will change his risk of future cardiac events. I do recommend to continue lifestyle modifications. 2. Nausea, vomiting, epigastric pain, and also abdominal tenderness with a family history of gastric cancer. I would like to obtain a CT scan of the abdomen and pelvis. In addition to that, the [place] [address] HEMATOLOGY ONCOLOGY NOTE Name: RIANNA GANN Room: [facility]#: [id number] Admission: 06/10/18 Attend Phys: Gio Mcallister MD Discharge: Date of : 74 Report #: [id number] chest pain. We will add CT chest. We will wait also for EGD and colonoscopy per GI. All questions have been answered. <ELECTRONICALLY SIGNED> By: Gio Mcallister MD 06/16/18 2213 0945 MD walter Malagon
== END ==
LOC: M.RTH 03:05
DX: D68.59 Other primary thrombophilia (principal); R11.2 Nausea with vomiting, unspecified; R10.13 Epigastric pain

== ENCOUNTER → 2018-06-10 | Outpatient (CLI) | payer OTHER | LOC: M.CT 10:40 | DX: K40.90 Unilateral inguinal hernia, without obstruction or gangrene, not specified as recurrent (principal); M47.814 Spondylosis without myelopathy or radiculopathy, thoracic region; M47.815 Spondylosis without myelopathy or radiculopathy, thoracolumbar region; K76.9 Liver disease, unspecified; R07.9 Chest pain, unspecified; I10 Essential (primary) hypertension; E78.5 Hyperlipidemia, unspecified; E78.00 Pure hypercholesterolemia, unspecified; I25.10 Atherosclerotic heart disease of native coronary artery without angina pectoris; F32.9 Major depressive disorder, single episode, unspecified ==

== ENCOUNTER → 2018-06-23 | Outpatient (CLI) | payer OTHER | LOC: M.LAB 08:24 | DX: Z01.812 Encounter for preprocedural laboratory examination (principal); I10 Essential (primary) hypertension; E78.00 Pure hypercholesterolemia, unspecified ==

== ENCOUNTER 2018-07-03 11:07 | Observation (INO) | payer OTHER ==
[~2018-07-03] VITALS: Ht 177.8 cm; Wt 104.3 kg
--- NOTE | ~2018-07-03 | H ---
[address] [address] HISTORY AND PHYSICAL Name: RIANNA GANN Room: [address] Oscar Hernandez#: [id number] Admission: 07/03/18 Attend Phys: Gaurav Pardo MD, Discharge: 07/04/18 Date of : 74 Report #: [id number] THIS REPORT FOR: //name// For History and Physical please refer to the consultation note in the patient's medical record. By: 0614Medical Records Staff JOE /ZAYNAB
[~2018-07-03 11:07] MED LIST changes: -OMEPRAZOLE40 MG PO
[2018-07-03 11:11] VITALS: BP 149/80
[2018-07-03 11:21] LABS: ABSOLUTE BASOPHILS 0.1 thou/uL (0.0-0.2); ABSOLUTE EOSINOPHILS 0.1 thou/uL (0.0-0.7); ABSOLUTE LYMPHOCYTES 1.9 thou/uL (0.8-5.3); ABSOLUTE MONOCYTES 0.6 thou/uL (0.0-1.2); ABSOLUTE NEUTROPHILS 6.5 thou/uL (1.6-8.1); BASOPHILS 0.6 %; EOSINOPHILS 0.7 %; HEMOGLOBIN 14.1 gm/dL (14.0-18.0); LYMPHOCYTES 20.5 %; MCH 32.6 pg (26.0-34.0); MCHC 34.3 g/dL (28.0-37.0); MCV 94.9 fL (80.0-100.0); NUCLEATED RBCS 0 /100WBC; PLATELET COUNT* 183 thou/uL (150-400); POLYS 71.2 %; RBC 4.32 mil/uL (4.50-6.00); RDW-CV 14.4 % (10.5-14.5); WBC 9.2 thou/uL (4.0-11.0)
[2018-07-03 11:31] LABS: APTT 28.7 Seconds (25.0-31.3); INR 1.1; PROTIME 10.7 Seconds (9.20-11.50)
[2018-07-03 11:35] LABS: ANION GAP 9 mmol/L (7-16); BUN 10 mg/dL (7-18); CALCIUM 8.4 mg/dL (8.5-10.1); CHLORIDE 100 mmol/L (98-107); CO2 27 mmol/L (21-32); CREATININE 1.6 mg/dL (0.6-1.3); GLUCOSE 123 mg/dL (70-99); POTASSIUM 3.7 mmol/L (3.5-5.1); SODIUM 136 mmol/L (136-145)
[2018-07-03 11:41] LABS: ALBUMIN 3.9 g/dL (3.4-5.0); ALKALINE PHOSPHATASE 63 U/L (46-116); LIPASE 89 U/L (73-393); NT-PRO BRAIN NAT PEPTIDE 506 pg/mL (<300); SGOT 19 U/L (15-37); SGPT 21 U/L (30-65); TOTAL BILIRUBIN 1.1 mg/dL (<0.1-1.0); TOTAL PROTEIN 7.2 g/dL (6.4-8.2); TROPONIN-I LEVEL <0.06 ng/mL (<0.06)
[2018-07-03 14:29] VITALS: BP 111/63
[2018-07-03 15:08] VITALS: BP 103/59
[2018-07-03] MEDS ORDERED: OMEPRAZOLE40 MG PO (15:30)
[2018-07-03 16:36] VITALS: BP 112/61
[2018-07-03 20:00] VITALS: BP 118/67
[2018-07-04] VITALS (16 sets, daily range): BP systolic 110–163; BP diastolic 51–93
--- NOTE | 2018-07-04 10:23 | EKG ---
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: : 1970 Requested By: Sergio Rodriguez Order Number: [id number] Reading MD: Getachew Dumas Measurements Intervals [place] Rate: 66 P: 65 [place]: 164 QRS: 42 QRSD: 95 T: 15 QT: 418 QTc: 438 Interpretive Statements Sinus rhythm Minimal ST elevation, anterior leads Compared to ECG 01/23/2018 08:38:28 Early repolarization no longer present ST (T wave) deviation still present Electronically Signed On 07-04-2018 10:23:28 CDT by Getachew Dumas [email or web address] <ELECTRONICALLY SIGNED> By: Getachew Dumas MD, FACC 07/04/18 1023 1114 1114 Getachew Dumas MD, [facility] /EPI
--- NOTE | 2018-07-04 10:23 | EKG ---
[place] [address] ELECTROCARDIOGRAM REPORT Name: RIANNA GANN Room: [address] ADM IN M.R.#: [id number] Admission: 07/03/18 Attend Phys: Gaurav Pardo MD, Discharge: Date of : 74 Report #: [id number] THIS REPORT FOR: //name// [facility] ED Test Date: 2018-07-03 Test Time: 11:11:06 Pat Name: RIANNA GANN Department: Room: [facility] Gender: M Exceptional Needs Teacher: : 1970 Requested By: Sergio Rodriguez Order Number: [id number] MD: Getachew Dumas Measurements Intervals [place] Rate: 68 P: 77 [place]: 165 QRS: 43 QRSD: 93 T: 13 QT: 418 QTc: 445 Interpretive Statements Sinus rhythm RSR' in V1 or V2, probably normal variant Minimal ST elevation, anterior leads Compared to ECG 01/23/2018 08:38:28 RSR' in V1 or V2 now present Early repolarization no longer present ST (T wave) deviation still present Electronically Signed On 07-04-2018 10:23:24 CDT by Getachew Dumas [email or web address] <ELECTRONICALLY SIGNED> By: Getachew Dumas MD, FACC 07/04/18 1023 1111 1111 Getachew Dumas MD, FAC /EPI
--- NOTE | 2018-07-04 10:58 | CARD ---
[address] [address] CARDIAC CATH REPORT Name: GANNRIANNA Faye Room: [address] IN .R.#: [id number] Admission: 07/03/18 Attend Phys: Gaurav Pardo MD, Discharge: Date of : 74 Report #: [id number] THIS REPORT FOR: //name// APPROVED REPORT Study performed: 07/04/2018 08:26:21 Patient Details Patient Status: In-Patient Room #: The patient is a 48 year-old male Event Personnel Dr Pardo Procedures Performed Left heart catheterization left ventriculography and selective coronary arteriography Indication Chest pain Risk Factors Hypercholesterolemia, Coronary Artery DiseaseHypertension Previous Procedures/Diagnoses Previous PCI, Previous CO Procedure Narrative The patient was brought electively to the Cardiac Catheterization Laboratory and was prepped and draped in a sterile manner. The right femoral was infiltrated with 1% Lidocaine subcutaneous anesthesia. A 6 Luxembourgish sheath was inserted into the right femoral artery. Coronary angiography was performed using coronary diagnostic catheters. The right coronary system was accessed and visualized with a Diagnostic catheter. The left coronary system was accessed and visualized with a Diagnostic catheter. The left ventricle was accessed and visualized with a Diagnostic catheter. Left ventricular/Aortic Valve gradient assessed via catheter pullback. Left ventriculogram was performed in QUICK projection. There was no hematoma. Intraoperative Conscious Sedation Fentanyl 50.0 mcg Versed 2.0 mg Diagnostic Cath Left Main 0 Percent narrowing [facility] [address] [place] [address] CARDIAC CATH REPORT Name: GANNRIANNA Faye Room: [address] ADM IN M.R.#: [id number] Admission: 07/03/18 Attend Phys: Gaurav Pardo MD, Discharge: Date of : 74 Report #: [id number] LAD Aneurysmal dilatation of the proximal LAD; 20% mid vessel narrowing Diagonal 1 Widely patent proximal first diagonal stent with aneurysmal dilatation of the proximal first diagonal Circumflex Widely patent proximal circumflex that was 0% narrowing of this nondominant vessel Right Coronary Large dominant vessel with 30% proximal narrowing and aneurysmal dilatation of the proximal mid and distal portions Left Ventriculography Ejection Fraction was 60% based off patient's . The left ventricle is normal in size with normal contractility. The left ventricular ejection fraction is estimated to be 60%. Left ventricular wall motion abnormalities are not present. There is no mitral insufficiency. Hemodynamics The aortic pressure is 120/70 mmHg with a mean of 84 mmHg. The left ventricular end diastolic pressure is 10 mmHg. There was no gradient across the aortic valve upon pullback. Conclusion #1 modest coronary artery disease characterized by the following: A aneurysmal dilatation the proximal LAD with a widely patent proximal first diagonal stent and aneurysmal dilatation of the first diagonal beyond the stent B nondominant circumflex with widely patent proximal stent C large dominant right coronary artery with 30% proximal narrowing and aneurysmal dilatation of the proximal mid and distal portions with a widely patent distal right coronary stent #2 normal left ventricular systolic function, estimate ejection fraction being 60% #3 normal left-sided hemodynamics study Recommendations [address] [place] [address] CARDIAC CATH REPORT Name: RIANNA GANN Room: [address] IN M.R.#: [id number] Admission: 07/03/18 Attend Phys: Gaurav Pardo MD, Discharge: Date of : 74 Report #: [id number] Cardiac Risk Reduction Program Aggressive Medical Therapy <ELECTRONICALLY SIGNED> By: Gaurav Pardo MD, FACC 07/04/18 1058 1058 1058Gaurav Pardo MD, FACC /INF
[2018-07-04 12:10] LABS: APTT 29.3 Seconds (25.0-31.3); INR 1.2; PROTIME 11.3 Seconds (9.20-11.50)
[2018-07-04 12:46] LABS: ANION GAP 6 mmol/L (7-16); BUN 10 mg/dL (7-18); CALCIUM 8.4 mg/dL (8.5-10.1); CHLORIDE 103 mmol/L (98-107); CHOLESTEROL 113 mg/dL (<200); CO2 28 mmol/L (21-32); CREATININE 1.3 mg/dL (0.6-1.3); GLUCOSE 128 mg/dL (70-99); HDL CHOLESTEROL 27 mg/dL (>40); LDL CHOLESTEROL 70 mg/dL (<100); POTASSIUM 3.7 mmol/L (3.5-5.1); SODIUM 137 mmol/L (136-145); TC:HDL 4.2 Ratio (Not establshd); TRIGLYCERIDE 81 mg/dL (<150); VLDL 16 mg/dL (<40)
[2018-07-04 12:52] LABS: SERUM ASSESSMENT Clear
--- NOTE | 2018-07-05 12:15 | D ---
[address] [address] DISCHARGE SUMMARY Name: GANNRIANNA M Room: [address] Oscar MAmrikRAmrik#: [id number] Admission: 07/03/18 Attend Phys: Gaurav Pardo MD, Discharge: 07/04/18 Date of : 74 Report #: [id number] THIS REPORT FOR: //name// CC: Mazin Pardo DATE OF SERVICE: 07/04/2018 FINAL DISCHARGE DIAGNOSES: 1. Chest pain. 2. Coronary artery disease. 3. Status post multiple prior percutaneous coronary interventions. 4. Status post remote inferior wall myocardial infarction. 5. Hypertension. 6. Hyperlipidemia. 7. Severe and chronic anxiety disorder. PROCEDURES: 07/04/2018 - left heart catheterization, left ventriculography, selective coronary arteriography. The patient is a very pleasant 48-year-old male with premature and aggressive coronary artery disease where he is status post remote inferior infarction and multiple prior percutaneous coronary interventions including the distal right coronary artery, diagonal and proximal circumflex. He presented yesterday with recurrent chest pain and associated dyspnea. There were no enzymatic or electrocardiographic changes to suggest acute myocardial injury. He underwent cardiac catheterization on 07/04/2018 which revealed a normal left ventricular function, estimated ejection fraction being 60%. There was a widely patent first diagonal stent, widely patent distal right coronary stent, widely patent circumflex stent. He continued to demonstrate aneurysmal dilatation noted before in the proximal LAD, proximal first diagonal and proximal and mid right coronary artery. At this point, there were no evident hemodynamically significant stenoses triggering his chest discomfort. Thus, I recommended to the patient and family continued antiplatelet, antihypertensive, lipid lowering and antianginal therapy. DISCHARGE MEDICATIONS: The patient is to be discharged to home on 07/04/2018 on the following medications: Aspirin 81 mg daily, atorvastatin 40 mg 3 times per week, Celexa 20 mg daily, diltiazem extended release 240 mg b.i.d., Colace 100 mg p.r.n., furosemide 20 mg p.r.n., lisinopril 20 mg b.i.d., [place] [address] DISCHARGE SUMMARY Name: RIANNA GANN [address]: [address]#: [id number] Admission: 07/03/18 Attend Phys: Gaurav Pardo MD, Discharge: 07/04/18 Date of : 74 Report #: [id number] 50 mg b.i.d., p.r.n. sublingual nitroglycerin, omeprazole 40 mg daily, potassium chloride 10 mEq accompanying his Lasix, ranolazine Ranexa 500 mg b.i.d., and Brilinta 90 mg b.i.d. The patient is scheduled to return to see me in the office in 6 weeks for continuing care. <ELECTRONICALLY SIGNED> By: Gaurav Pardo MD, [facility] 07/05/18 1215 0952 1102John Lorraine Pardo MD, [facility] /nt
== END 2018-07-04 15:15 | disposition home or self-care (01) ==
LOC: M.ERS 11:07 → M.2W 12:24 → M.TBA-ER 12:24 → M.2W 14:53
PROVIDERS: Emergency Medicine Emergency Medical Services; Nurse Practitioner Family; ADMIT Internal Medicine
DX: I25.110 Atherosclerotic heart disease of native coronary artery with unstable angina pectoris (principal); I10 Essential (primary) hypertension; E78.5 Hyperlipidemia, unspecified; E66.9 Obesity, unspecified; I25.2 Old myocardial infarction; F41.9 Anxiety disorder, unspecified; Z95.5 Presence of coronary angioplasty implant and graft